=== PATIENT | female | born 1995 | race Caucasian/White ===

== ENCOUNTER → 2022-08-21 14:26 | Outpatient (CLI) | payer BC, SELFPAY ==
--- NOTE | ~2022-08-21 | US_ITS ---
EXAMINATION: US transvaginal DATE: 08/21/2022 14:52 INDICATION: Pelvic pain Comparison:04/11/2017 TECHNIQUE: Multiple endovaginal sonographic images of the pelvis performed. FINDINGS: The uterus measures 9.1 x 3.9 x 4.5 cm. The endometrial complex measures 3 mm. The right ovary measures 3.1 x 3 x 3 cm and the left ovary measures 2.7 x 1.5 x 2.1 cm. There are sm all follicles in each ovary. Normal doppler signal in both ovaries. There is trace free fluid in the pelvis. There are no abnormal masses seen on either side. IMPRESSION: 1. Unremarkable pelvic ultrasound. Reviewed, dictated and finalized at location A. [facility]
== END ==
PROVIDERS: PCP Emergency Medicine; Visit Provider Nurse Practitioner
DX: R10.2 Pelvic and perineal pain (principal)
CPT/HCPCS: 76830

== ENCOUNTER 2023-08-09 08:18 | Outpatient (CLI) | payer OTHER, SELFPAY ==
[2023-08-09 12:09] LABS: Basophils Percent Auto 0.5 % (0.2-1.2); Eosinophils Absolute Auto 0.2 K/mm3 (0-0.3); Eosinophils Percent Auto 2.5 % (0-4.4); Hematocrit 40.9 % (37.0-47.0); Immature Granulocyte Absolute 0.03 K/mm3 (0.00-0.031); Immature Granulocyte Percent A 0.4 % (0-0.5); Lymphocytes Absolute Auto 2.88 K/mm3 (0.9-3.2); Lymphocytes Percent Auto 37.2 % (18.3-44.2); Mean Corpuscular HGB Conc 31.8 g/dl (32-36); Mean Corpuscular Hemoglobin 29.8 pg (26-34); Mean Corpuscular Volume 93.8 fl (80-100); Monocytes Absolute Auto 0.9 K/mm3 (0.1-0.6); Neutrophils Absolute Auto 3.7 K/mm3 (1.3-6.7); Neutrophils Percent Auto 47.4 % (45.5-73.1); Platelet Count Result 311 k/mm3 (150-375); Red Blood Count 4.36 M/mm3 (4.2-5.4); Red Cell Distribution Width 13.4 % (11.5-14.5); White Blood Count 7.7 K/mm3 (4.5-10.0)
[2023-08-09 12:24] LABS: Alanine Aminotransferase 28 U/L (6-35); Albumin Level 3.9 g/dL (3.5-5.1); Alkaline Phosphatase 49 U/L (38-126); Anion Gap 6 mmol/L (8-16); Aspartate Amino Transferase 82 U/L (14-36); Bilirubin,Total 0.5 mg/dL (0.2-1.3); Blood Urea Nitrogen 12 mg/dL (7-17); Calcium 8.9 mg/dL (8.4-10.2); Carbon Dioxide 26 mmol/L (22-30); Chloride 106 mmol/L (98-107); Cholesterol 207 mg/dL (0-200); Estimated Glomerular Filt Rate > 60; Glucose 78 mg/dL (65-110); HDL Direct 55 mg/dL; Potassium 4.3 mmol/L (3.4-5.0); Sodium 138 mmol/L (137-145); Triglycerides 40 mg/dL (<150)
[2023-08-09 12:36] LABS: LDL Cholesterol Direct 116 mg/dL
[2023-08-09 12:41] LABS: Vitamin D 25 Hydroxy 37.9 ng/mL
[2023-08-09 12:47] LABS: Hemoglobin A1C 5.1 % (<5.7); Thyroid Stimulating Hormone 0.867 uIU/mL (0.465-4.680)
== END 2023-08-09 08:19 | disposition home or self-care (01) ==
PROVIDERS: PCP Emergency Medicine; Visit Provider Nurse Practitioner Family
DX: Z00.00 Encounter for general adult medical examination without abnormal findings (principal); E74.39 Other disorders of intestinal carbohydrate absorption; R73.03 Prediabetes; E78.5 Hyperlipidemia, unspecified; E53.8 Deficiency of other specified B group vitamins; E55.9 Vitamin D deficiency, unspecified; Z13.29 Encounter for screening for other suspected endocrine disorder
CPT/HCPCS: 36415; 80053; 80061; 82306; 82607; 83036; 84443; 85025

== ENCOUNTER 2024-06-24 16:00 | Outpatient (CLI) | payer OTHER, SELFPAY ==
--- NOTE | ~2024-06-24 | US_ITS ---
Pelvic ultrasound. Clinical History: First trimester , establish dates and viability Technique: Realtime transabdominal scanning of the pelvis was performed. Color flow Doppler and Doppl er spectral analysis were performed. Findings: The uterus is anteverted, and contains an intrauterine gestation. [place]-rump length of 1.9 cm corresponds to an estimated gestational age of 8 weeks 3 days. heart rate is 176 bpm. The right ovary measures 3.3 x 1.6 x 2.0 cm. No significant right ovarian or adnexal mass is seen. The left ovary measures 2.3 x 3.1 x 1.6 cm. No significant left ovarian or adnexal mass is seen. There is no evidence of free fluid in the cul de sac. Impression: Live intrauterine gestation, with estimated gestational age of 8 weeks 3 days. heart rate is 17 6 bpm. Reviewed, dictated and finalized at [facility]. [employer] Impression: Live intrauterine gestation, with estimated gestational age of 8 weeks 3 days. heart rate is 176 bpm.
== END 2024-06-24 16:01 | disposition home or self-care (01) ==
LOC: MICIMG 16:00
PROVIDERS: PCP Advanced Practice Midwife; Visit Provider Advanced Practice Midwife
DX: O36.80X0 Pregnancy with inconclusive fetal viability, not applicable or unspecified (principal); Z3A.00 Weeks of gestation of pregnancy not specified
CPT/HCPCS: 76801